=== PATIENT | male | born 1940 | race Caucasian/White ===

== ENCOUNTER 2017-11-28 16:55 | Emergency (ER) | payer OTHER ==
[~2017-11-28] VITALS: Ht 162.6 cm; Wt 75.7 kg
[2017-11-28 17:40] VITALS: Ht 162.6 cm; Wt 75.7 kg
[2017-11-28 20:22] LABS: BASOPHIL % 0.6 % (0-2); PLATELET COUNT 173 x10^3mcL (130-400); RED CELL DISTRIBUTION WIDTH 13.8 % (11.5-14.5)
[2017-11-28 20:26] LABS: CALCIUM 8.7 mg/dL (8.5-10.1); CARBON DIOXIDE 24.8 mmol/L (21-32); CHLORIDE SERUM 100 mmol/L (98-107); CREATININE SERUM 1.1 mg/dL (0.7-1.3); GLUCOSE SERUM 152 mg/dL (74-106); POTASSIUM SERUM 3.5 mmol/L (3.5-5.1); SODIUM SERUM 136 mmol/L (136-145)
[2017-11-28 20:31] LABS: ALBUMIN 3.9 g/dL (3.4-5.0); ALKALINE PHOSPHATASE 95 U/L (46-116); ALT/SGPT 49 U/L (16-63); AST/SGOT 21 U/L (15-37); BILIRUBIN TOTAL 0.3 mg/dL (0.20-1.00); TOTAL PROTEIN, SERUM 7.9 g/dL (6.4-8.2)
[2017-11-28 22:06] VITALS: BP 137/83
== END 2017-11-28 22:06 | disposition home or self-care (01) ==
LOC: ED 16:55
PROVIDERS: Emergency Medicine
DX: J11.1 Influenza due to unidentified influenza virus with other respiratory manifestations (principal); Z88.0 Allergy status to penicillin
CPT/HCPCS: 87804; J0780; J1200; J1885; J7030; Q0092

== ENCOUNTER 2018-05-10 20:06 | Emergency (ER) | payer OTHER ==
[~2018-05-10] VITALS: Ht 160 cm; Wt 75.7 kg
[2018-05-10 20:19] VITALS: Ht 160 cm; Wt 75.7 kg
[2018-05-10 21:08] LABS: BASOPHIL % 1.1 % (0-2); PLATELET COUNT 193 x10^3mcL (130-400)
[2018-05-10 21:11] LABS: RED CELL DISTRIBUTION WIDTH 14.8 % (11.5-14.5)
[2018-05-10 21:25] LABS: CARBON DIOXIDE 29.6 mmol/L (21-32); CHLORIDE SERUM 100 mmol/L (98-107); GLUCOSE SERUM 102 mg/dL (74-106); POTASSIUM SERUM 3.3 mmol/L (3.5-5.1); SODIUM SERUM 140 mmol/L (136-145)
[2018-05-10 21:39] LABS: ALBUMIN 4.1 g/dL (3.4-5.0); ALKALINE PHOSPHATASE 97 U/L (46-116); ALT/SGPT 44 U/L (16-63); AST/SGOT 21 U/L (15-37); BILIRUBIN TOTAL 0.3 mg/dL (0.20-1.00); TOTAL PROTEIN, SERUM 8.2 g/dL (6.4-8.2)
[2018-05-11 00:10] VITALS: BP 147/80
== END 2018-05-11 00:10 | disposition home or self-care (01) ==
LOC: ED 20:06
PROVIDERS: Emergency Medicine
DX: I10 Essential (primary) hypertension (principal); G89.29 Other chronic pain; M54.9 Dorsalgia, unspecified; Z88.0 Allergy status to penicillin
CPT/HCPCS: J3490; Q0092

== ENCOUNTER 2018-08-30 16:50 | Inpatient (IN) | payer OTHER ==
[~2018-08-30] VITALS: Ht 162.6 cm; Wt 76.2 kg
[2018-08-30 17:04] VITALS: Ht 162.6 cm; Wt 76.2 kg
[2018-08-30 17:19] LABS: BASOPHIL % 0.3 % (0-2); PLATELET COUNT 209 x10^3mcL (130-400); RED CELL DISTRIBUTION WIDTH 15.6 % (11.5-14.5)
[2018-08-30 17:23] LABS: CARBON DIOXIDE 27.5 mmol/L (21-32); CHLORIDE SERUM 102 mmol/L (98-107); CREATININE SERUM 1.3 mg/dL (0.7-1.3); GLUCOSE SERUM 99 mg/dL (74-106); POTASSIUM SERUM 3.7 mmol/L (3.5-5.1); SODIUM SERUM 139 mmol/L (136-145)
[2018-08-30 17:27] LABS: ALBUMIN 4.1 g/dL (3.4-5.0); ALKALINE PHOSPHATASE 107 U/L (46-116); ALT/SGPT 57 U/L (16-63); AST/SGOT 22 U/L (15-37); BILIRUBIN TOTAL 0.2 mg/dL (0.20-1.00)
[2018-08-30 17:28] LABS: TOTAL PROTEIN, SERUM 8.3 g/dL (6.4-8.2)
[2018-08-30] MEDS ORDERED: HYDROCHLOROTH12.5 M3 PO (18:29)
[2018-08-30 21:08] LABS: CHOLESTEROL/HDL RATIO 5.4; MAGNESIUM 2.3 mg/dL (1.8-2.4)
[2018-08-30 21:11] VITALS: BP 162/75
[2018-08-30 21:22] VITALS: BP 162/75
[2018-08-31 05:33] VITALS: BP 121/79
[2018-08-31 07:06] LABS: CALCIUM 8.5 mg/dL (8.5-10.1); CARBON DIOXIDE 28.6 mmol/L (21-32); CHLORIDE SERUM 103 mmol/L (98-107); CREATININE SERUM 1.3 mg/dL (0.7-1.3); GLUCOSE SERUM 96 mg/dL (74-106); SODIUM SERUM 140 mmol/L (136-145)
[2018-08-31 07:17] LABS: BASOPHIL % 0.4 % (0-2); PLATELET COUNT 166 x10^3mcL (130-400); RED CELL DISTRIBUTION WIDTH 14.3 % (11.5-14.5)
[2018-08-31 08:17] VITALS: BP 125/74
[2018-08-31 10:42] LABS: microscopic required? NO
[2018-08-31 10:56] LABS: urine erythrocyte NEGATIVE (NEGATIVE)
[2018-08-31 11:35] LABS: AMPHETAMINE QUAL UR NONE DETECTED (See below)
[2018-08-31 12:32] VITALS: BP 110/65
[2018-08-31 15:47] VITALS: BP 107/70
[2018-09-01 05:42] VITALS: BP 96/57
[2018-09-01 08:38] VITALS: BP 116/74
[2018-09-01 11:45] VITALS: BP 114/76
[2018-09-01 12:55] VITALS: BP 116/74
== END 2018-09-01 13:40 | disposition home or self-care (01) | DRG 311 ==
LOC: ED 16:50 → DU 18:02
PROVIDERS: Emergency Medicine; Internal Medicine
DX: I24.9 Acute ischemic heart disease, unspecified (principal); N17.9 Acute kidney failure, unspecified; I11.9 Hypertensive heart disease without heart failure; I25.10 Atherosclerotic heart disease of native coronary artery without angina pectoris; E78.5 Hyperlipidemia, unspecified; J45.909 Unspecified asthma, uncomplicated; G89.29 Other chronic pain; Z68.28 Body mass index [BMI] 28.0-28.9, adult; Z88.0 Allergy status to penicillin; Z79.82 Long term (current) use of aspirin
CPT/HCPCS: 90658; A9500; G0378; J2785; Q0092

== ENCOUNTER 2018-09-28 21:00 | Emergency (ER) | payer OTHER ==
[~2018-09-28] VITALS: Ht 162.6 cm; Wt 75.7 kg
[~2018-09-28 21:00] MED LIST: HYDROCHLOROTH12.5 M3 PO
[2018-09-28 21:23] VITALS: Ht 162.6 cm; Wt 75.7 kg
[2018-09-28 23:40] LABS: CALCIUM 8.8 mg/dL (8.5-10.1); CHLORIDE SERUM 101 mmol/L (98-107); CREATININE SERUM 1.3 mg/dL (0.7-1.3); GLUCOSE SERUM 131 mg/dL (74-106); PLATELET COUNT 174 x10^3mcL (130-400); POTASSIUM SERUM 3.4 mmol/L (3.5-5.1); SODIUM SERUM 139 mmol/L (136-145)
[2018-09-28 23:45] LABS: ALBUMIN 3.7 g/dL (3.4-5.0); ALKALINE PHOSPHATASE 129 U/L (46-116); ALT/SGPT 39 U/L (16-63); AST/SGOT 15 U/L (15-37); BILIRUBIN TOTAL 0.1 mg/dL (0.20-1.00); TOTAL PROTEIN, SERUM 7.6 g/dL (6.4-8.2)
[2018-09-28 23:47] LABS: RED CELL DISTRIBUTION WIDTH 15.4 % (11.5-14.5)
[2018-09-29 00:09] LABS: MONOCYTE 22 % (0-7); SEGMENTED NEUTROPHILS 54 % (37-75)
[2018-09-29 00:11] LABS: rbc morphology (normal/abnorm) NORMAL (NORMAL)
[2018-09-29 03:37] VITALS: BP 103/74
== END 2018-09-29 03:37 | disposition home or self-care (01) ==
LOC: ED 21:00
PROVIDERS: Emergency Medicine
DX: R10.13 Epigastric pain (principal); I10 Essential (primary) hypertension; G89.29 Other chronic pain; Z88.0 Allergy status to penicillin
CPT/HCPCS: J2405; J3010; Q0092

== ENCOUNTER 2018-12-06 14:00 | Inpatient (IN) | payer OTHER ==
[~2018-12-06] VITALS: Ht 162.6 cm; Wt 72.1 kg
[2018-12-06 14:35] VITALS: Ht 162.6 cm; Wt 72.1 kg
[2018-12-06 17:17] LABS: CALCIUM 8.8 mg/dL (8.5-10.1); CARBON DIOXIDE 29.5 mmol/L (21-32); CHLORIDE SERUM 101 mmol/L (98-107); CREATININE SERUM 1.1 mg/dL (0.7-1.3); GLUCOSE SERUM 109 mg/dL (74-106); POTASSIUM SERUM 4.1 mmol/L (3.5-5.1); SODIUM SERUM 138 mmol/L (136-145)
[2018-12-06 17:18] LABS: BASOPHIL % 0.2 % (0-2); PLATELET COUNT 263 x10^3mcL (130-400); RED CELL DISTRIBUTION WIDTH 14.3 % (11.5-14.5)
[2018-12-06 17:23] LABS: ALBUMIN 3.8 g/dL (3.4-5.0); ALKALINE PHOSPHATASE 98 U/L (46-116); ALT/SGPT 24 U/L (16-63); AST/SGOT 17 U/L (15-37); BILIRUBIN TOTAL 0.21 mg/dL (0.20-1.00); CHOLESTEROL 161 mg/dL (<200); LIPASE 115 IU/L (73-393); TRIGLYCERIDES 116 mg/dL (<150)
[2018-12-06 17:24] LABS: CHOLESTEROL/HDL RATIO 4.7; HDL CHOLESTEROL 34 mg/dL (40-60)
[2018-12-06 17:39] LABS: T3 TOTAL 1.19 ng/mL
[2018-12-06 17:44] LABS: FREE T4 1.05 ng/dL (0.76-1.46); FREE THYROXINE INDEX 3.2 ug/dL (1.4-4.5); T4(THYROXINE) 8.8 ug/dL (4.7-13.3)
[2018-12-06] MEDS ORDERED: DIOVAN HCT1 TA1 PO (18:05)
[2018-12-06] MEDS ORDERED: VITAMIN-D1000 IU PO (18:08)
[2018-12-06 18:47] LABS: microscopic required? NO
[2018-12-06 18:58] LABS: UA SPECIFIC GRAVITY 1.015 (1.005-1.035); urine erythrocyte NEGATIVE (NEGATIVE)
[2018-12-06 19:12] LABS: AMPHETAMINE QUAL UR NONE DETECTED (See below)
[2018-12-06 19:13] LABS: MAGNESIUM 2.5 mg/dL (1.8-2.4); PHOSPHOROUS 3.1 mg/dL (2.5-4.9)
[2018-12-06 20:34] VITALS: BP 162/77
[2018-12-06 22:09] VITALS: BP 162/77
[2018-12-07 05:28] VITALS: BP 133/73
[2018-12-07 09:50] VITALS: BP 130/74
[2018-12-07 12:00] VITALS: BP 144/71
[2018-12-07 16:45] VITALS: BP 140/64
[2018-12-07 20:52] VITALS: BP 150/79
[2018-12-08] VITALS (7 sets, daily range): BP systolic 118–175; BP diastolic 58–83
[2018-12-08 06:28] LABS: CALCIUM 8.7 mg/dL (8.5-10.1); CARBON DIOXIDE 28.9 mmol/L (21-32); CHLORIDE SERUM 107 mmol/L (98-107); CREATININE SERUM 0.9 mg/dL (0.7-1.3); GLUCOSE SERUM 102 mg/dL (74-106); MAGNESIUM 2.2 mg/dL (1.8-2.4); PHOSPHOROUS 3.3 mg/dL (2.5-4.9); SODIUM SERUM 143 mmol/L (136-145)
[2018-12-08 06:30] LABS: BASOPHIL % 0.4 % (0-2); PLATELET COUNT 201 x10^3mcL (130-400); RED CELL DISTRIBUTION WIDTH 14.3 % (11.5-14.5)
[2018-12-08] MEDS ORDERED: XARELTO15 M1 PO (10:42)
[2018-12-08] MEDS ORDERED: ZIT250 PO (10:42)
[2018-12-09 05:32] VITALS: BP 140/77
[2018-12-09 06:12] LABS: BASOPHIL % 0.2 % (0-2); PLATELET COUNT 209 x10^3mcL (130-400); RED CELL DISTRIBUTION WIDTH 14.2 % (11.5-14.5)
[2018-12-09 06:31] LABS: CALCIUM 8.6 mg/dL (8.5-10.1); CARBON DIOXIDE 29.4 mmol/L (21-32); CHLORIDE SERUM 103 mmol/L (98-107); CREATININE SERUM 0.9 mg/dL (0.7-1.3); GLUCOSE SERUM 95 mg/dL (74-106); MAGNESIUM 2.1 mg/dL (1.8-2.4); PHOSPHOROUS 3.1 mg/dL (2.5-4.9); POTASSIUM SERUM 3.8 mmol/L (3.5-5.1); SODIUM SERUM 141 mmol/L (136-145)
[2018-12-09 09:00] VITALS: BP 145/77
[2018-12-09 12:15] VITALS: BP 141/75
[2018-12-09 18:00] VITALS: BP 166/83
[2018-12-09 19:18] VITALS: BP 151/76
[2018-12-09 20:24] VITALS: BP 130/62
[2018-12-10 05:25] VITALS: BP 145/94
[2018-12-10 06:10] LABS: BASOPHIL % 0.4 % (0-2); PLATELET COUNT 209 x10^3mcL (130-400); RED CELL DISTRIBUTION WIDTH 14.5 % (11.5-14.5)
[2018-12-10 08:15] LABS: CALCIUM 9.3 mg/dL (8.5-10.1); CARBON DIOXIDE 25.6 mmol/L (21-32); CHLORIDE SERUM 104 mmol/L (98-107); GLUCOSE SERUM 91 mg/dL (74-106); MAGNESIUM 2.3 mg/dL (1.8-2.4); PHOSPHOROUS 3.3 mg/dL (2.5-4.9); POTASSIUM SERUM 4.1 mmol/L (3.5-5.1); SODIUM SERUM 138 mmol/L (136-145)
[2018-12-10 08:40] VITALS: BP 154/88
[2018-12-10 13:30] VITALS: BP 144/84
[2018-12-10 18:00] VITALS: BP 135/88
[2018-12-10 20:59] VITALS: BP 152/77
[2018-12-11 05:02] VITALS: BP 109/76
[2018-12-11 07:59] LABS: BASOPHIL % 0.4 % (0-2); PLATELET COUNT 200 x10^3mcL (130-400); RED CELL DISTRIBUTION WIDTH 13.6 % (11.5-14.5)
[2018-12-11 09:18] VITALS: BP 144/92
[2018-12-11 09:59] LABS: CALCIUM 8.6 mg/dL (8.5-10.1); CARBON DIOXIDE 28.8 mmol/L (21-32); CHLORIDE SERUM 107 mmol/L (98-107); CREATININE SERUM 0.7 mg/dL (0.7-1.3); GLUCOSE SERUM 92 mg/dL (74-106); POTASSIUM SERUM 4.2 mmol/L (3.5-5.1); SODIUM SERUM 141 mmol/L (136-145)
[2018-12-11 12:53] VITALS: BP 143/82
[2018-12-11 17:22] VITALS: BP 168/86
[2018-12-11 20:30] VITALS: BP 143/70
[2018-12-12 05:37] VITALS: BP 148/79
[2018-12-12 06:29] LABS: CALCIUM 8.3 mg/dL (8.5-10.1); CARBON DIOXIDE 29.7 mmol/L (21-32); CHLORIDE SERUM 106 mmol/L (98-107); GLUCOSE SERUM 89 mg/dL (74-106); POTASSIUM SERUM 3.9 mmol/L (3.5-5.1); SODIUM SERUM 139 mmol/L (136-145)
[2018-12-12 08:43] VITALS: BP 143/81
[2018-12-12 09:15] LABS: BASOPHIL % 0.3 % (0-2); PLATELET COUNT 182 x10^3mcL (130-400); RED CELL DISTRIBUTION WIDTH 13.5 % (11.5-14.5)
[2018-12-12 16:09] VITALS: BP 163/82
[2018-12-12 20:51] VITALS: BP 151/79
[2018-12-13 04:23] VITALS: BP 143/76
[2018-12-13 06:13] LABS: BASOPHIL % 0.4 % (0-2); PLATELET COUNT 185 x10^3mcL (130-400); RED CELL DISTRIBUTION WIDTH 14.4 % (11.5-14.5)
[2018-12-13 06:17] LABS: CALCIUM 8.7 mg/dL (8.5-10.1); CARBON DIOXIDE 29.5 mmol/L (21-32); CHLORIDE SERUM 105 mmol/L (98-107); CREATININE SERUM 0.9 mg/dL (0.7-1.3); GLUCOSE SERUM 96 mg/dL (74-106); SODIUM SERUM 141 mmol/L (136-145)
[2018-12-13 09:02] VITALS: BP 151/85
[2018-12-13 10:16] VITALS: BP 151/85
[2018-12-13] MEDS ORDERED: COUMADIN5 MG PO (10:46)
[2018-12-13 11:29] VITALS: BP 146/77
== END 2018-12-13 16:36 | disposition home or self-care (01) | DRG 175 ==
LOC: ED 14:00 → DU 19:26 → MU 19:26 → DU 20:08 → MU 12-11 16:54
PROVIDERS: Specialist; ADMIT General Practice
DX: I26.99 Other pulmonary embolism without acute cor pulmonale (principal); N17.0 Acute kidney failure with tubular necrosis; J44.1 Chronic obstructive pulmonary disease with (acute) exacerbation; J20.9 Acute bronchitis, unspecified; E11.65 Type 2 diabetes mellitus with hyperglycemia; I10 Essential (primary) hypertension; E78.5 Hyperlipidemia, unspecified; E83.41 Hypermagnesemia; F17.210 Nicotine dependence, cigarettes, uncomplicated; Z68.28 Body mass index [BMI] 28.0-28.9, adult
CPT/HCPCS: 82962; 83880; 84439; J1650; J7030; J7620; Q9967

== ENCOUNTER 2019-01-19 20:26 | Inpatient (IN) | payer OTHER ==
[~2019-01-19] VITALS: Ht 162.6 cm; Wt 70.4 kg
[~2019-01-19 20:26] MED LIST changes: +COUMADIN5 MG PO; +DIOVAN HCT1 TA1 PO; +VITAMIN-D1000 IU PO; +XARELTO15 M1 PO; +ZIT250 PO
--- NOTE | 2019-01-19 20:35 | NUR ---
EMT AT BEDSIDE FOR EKG
--- NOTE | 2019-01-19 20:41 | NUR ---
PT PRESENTED TO THE ED WITH C/O PRESSURE-LIKE CHEST PAIN RATED 10/10 THAT BEGAN 2 HRS AGO. STS HIS BUE GET NUMB/TINGLING. ALSO C/O PRESSURE-LIKE ORTIZ RATED 10/10. DENIES TAKING ANY PAIN MEDS AT HOME. STS THIS HAS HAPPENED BEFORE. DENIES ANY N/V/D. STS HE WAS AT THIS HOSPITAL "NOT TOO LONG AGO", AND WAS TOLD THAT HE HAD BLOOD CLOTS IN HIS LOWER EXTREMITIES, PT IS CURRETLY TAKING WARFARIN. PT DENIES ANY SOB. PT CONNECTED TO FULL DIRECTOR OF SUSTAINABILITY.
[2019-01-19 21:05] LABS: BASOPHIL % 0.4 % (0-2); PLATELET COUNT 168 x10^3mcL (130-400)
[2019-01-19 21:11] LABS: RED CELL DISTRIBUTION WIDTH 14.7 % (11.5-14.5)
[2019-01-19 21:14] LABS: CALCIUM 8.4 mg/dL (8.5-10.1); CARBON DIOXIDE 25.2 mmol/L (21-32); CHLORIDE SERUM 103 mmol/L (98-107); CREATININE SERUM 1.1 mg/dL (0.7-1.3); GLUCOSE SERUM 99 mg/dL (74-106); POTASSIUM SERUM 3.6 mmol/L (3.5-5.1); SODIUM SERUM 137 mmol/L (136-145)
[2019-01-19 21:19] LABS: ALBUMIN 3.7 g/dL (3.4-5.0); ALKALINE PHOSPHATASE 83 U/L (46-116); ALT/SGPT 41 U/L (16-63); AST/SGOT 29 U/L (15-37); BILIRUBIN TOTAL 0.32 mg/dL (0.20-1.00); TOTAL PROTEIN, SERUM 7.2 g/dL (6.4-8.2)
--- NOTE | 2019-01-19 21:54 | NUR ---
PT IS SITTING UP IN THE GURNEY. NO S/S OF ACUTE DISTRESS NOTED. PT'S BREATHING IS E/U ON RA, PT SATURATING 97%. PT CONNECTED TO FULL MOTHER REPAIRER. WILL CONT TO MONITOR
[2019-01-19] MEDS ORDERED: COUMADIN2 MG PO (23:28)
[2019-01-19] MEDS ORDERED: METFORMIN HYDR500 M1 PO (23:28)
--- NOTE | 2019-01-19 23:45 | NUR ---
REPORT GIVEN TO AKASH FOR CONTINUITY OF CARE
[2019-01-20 00:11] LABS: CHOLESTEROL/HDL RATIO 4.1; MAGNESIUM 2.2 mg/dL (1.8-2.4)
--- NOTE | 2019-01-20 00:12 | NUR ---
RECEIVED PT FROM ED [facility]IA [facility], CAME IN DUE TO CHEST PAIN W/ SOB AND COUGH. AAOX4. DENIES HEADACHE/DIZZINESS. ABLE TO FOLLOW COMMANDS. NO SOB NOTED, LUNG SOUNDS CTA. DENIES CHEST PAIN/PRESSURE,SINUS BRADYCARDIA ON THE MONITOR. DENIES ABDOMINAL DISCOMFORT. ABDOMEN IS SOFT AND ROUND. VOIDS FREELY. SKIN IS INTACT. IV SITE ON THE RAC IS PATENT AND INTACT. SIDE RAILS UPX2. CALL LIGHT ON REACH. ENDORSED TO PRIMARY NURSE JUAN FOR CONTINUITY OF CARE
[2019-01-20 00:20] VITALS: BP 161/73
[2019-01-20 00:41] VITALS: Ht 162.6 cm; Wt 70.4 kg
--- NOTE | 2019-01-20 01:00 | NUR ---
PATIENT SLEEPING QUIETLY AND COMFORTABLY THIS TIME, SB-SR ON THE MONITOR.SAFETY PRECAUTIONS MAINTAINED. WILL CONTINUE TO MONITOR.
--- NOTE | 2019-01-20 03:30 | NUR ---
REMAINED ASLEEP NO DISTRESS, WILL CONTINUE TO MONITOR.
[2019-01-20 06:23] LABS: CALCIUM 8.7 mg/dL (8.5-10.1); CARBON DIOXIDE 26.4 mmol/L (21-32); CHLORIDE SERUM 104 mmol/L (98-107); GLUCOSE SERUM 87 mg/dL (74-106); POTASSIUM SERUM 3.9 mmol/L (3.5-5.1); SODIUM SERUM 141 mmol/L (136-145)
[2019-01-20 06:27] LABS: BASOPHIL % 0.6 % (0-2); PLATELET COUNT 158 x10^3mcL (130-400)
[2019-01-20 06:34] VITALS: BP 131/82
--- NOTE | 2019-01-20 06:34 | NUR ---
PATIENT WITH HX; DM, RANDOM ACUCHECK DONE THIS AM WAS 81, GAVE 1 GLASS OF ORANGE JUICE.PATIENT INFORMED ABOUT LEXISCAN TODAY AT 1330 TO CHECK HIS HEART AND THAT NO FODD NOR DRINK AFTER BREAKFAST VERBALIZED UNDERSTANDING. HEPLOCK INTACT. PATIENT HAD DENIED CHEST PAINS DURING THE SHIFT, TELE#22,SB, HR=57BPM, RHYTHM REGULAR. SAFEY MAINTAINED. WILL ENDORSE CONTINUITY OF CARE TO INCOMING NURSE.
[2019-01-20 07:01] LABS: RED CELL DISTRIBUTION WIDTH 14.8 % (11.5-14.5)
--- NOTE | 2019-01-20 07:21 | NUR ---
bedside handsoff and introduction performed with incoming nurse osito-jeanette.
--- NOTE | 2019-01-20 08:00 | NUR ---
RECEIVED PATIENT ALERT AND ORIENTED AND IS FOR STRESS TEST TODAY. IV INTACT AND HELD THE BP MEDICATION AND FOR TESTING TODAY AT 1130. SPOKE WITH THE STAFF IN NUCLEAR MED AND THEY WILL RETREAVE HIM AT 1130 AND THE TEST AT 1300. GRANTABILIO TAHS NO COMPLAINTS OF PAIN OR ANY ISSUES WITH SOB AT THIS TIME. LUNGS ARE CLEAR AND BOWEL SOUNDS ACTIVE AND SLIGHT TRACE EDEMA NOTED TO THE LOWER EXTREMITES. PATIENT HAS BEEN AMBULATORY AND WITH LAST TROPONINE AT 0.02. PATIENT HAS BEEN ON COUMADIN AT HOME AND WILL CONTINUE HERE. RECEIVED LOVENOX IN THE ER ON ADMISSION. PATIENT HAS NOTED LABS OF BRYAN BUN AT 20.0, WBC AT 5.7, ORTIZ DH DOF 11.6/35, AN DTHE PT AT 11.4. PATIENTS VITALS AT THIS TIME AT 97.3, 58, 20, 131/82, 97% ON ROOM AIR. PATIENT HAS BEEN SINUS DARY ON THE MONITOR.
[2019-01-20 09:24] VITALS: BP 129/67
--- NOTE | 2019-01-20 11:17 | NUR ---
RECEIVED CALL FROM NM AND THE TEST WAS CANCELED PER THE TECH PER DR ROBLES. WILL ADVISE THE PATIENT INDICATED. WILL GIVE BRYAN BP MEDICATION NOW INDICATED WELL. NOT DISTRESS AT THIS TIME.
[2019-01-20 12:44] VITALS: BP 125/77
[2019-01-20 13:38] VITALS: BP 125/77
--- NOTE | 2019-01-20 13:57 | NUR ---
DIET TOLERATE AND PATIENT HAS NO COMPLAINTS OF PAIN AT THIS TIME. AWAITING DR ROBLES FOR ORDER FOR DISCHARGE IF APPROPRIATE.
--- NOTE | 2019-01-20 14:37 | NUR ---
GAVE DISCHARGE PAPERWORK TO THE PATIENT ALONG WITH PRESCRIPTION. PATIENT IV AND TELE REMOVED. AWAITING FINISHING TUNNEL OPERATOR AT THIS TIME. A PACKET OF EDUCATIONAL MATERIALS GIVEN TO THE PATIENT.
== END 2019-01-20 15:25 | disposition home or self-care (01) | DRG 302 ==
LOC: ED 20:26 → DU 21:02
PROVIDERS: Emergency Medicine; ADMIT Internal Medicine
DX: I25.119 Atherosclerotic heart disease of native coronary artery with unspecified angina pectoris (principal); I26.99 Other pulmonary embolism without acute cor pulmonale; I24.9 Acute ischemic heart disease, unspecified; I11.9 Hypertensive heart disease without heart failure; R09.1 Pleurisy; E11.9 Type 2 diabetes mellitus without complications; E78.5 Hyperlipidemia, unspecified; Z68.26 Body mass index [BMI] 26.0-26.9, adult; Z79.01 Long term (current) use of anticoagulants; Z79.82 Long term (current) use of aspirin
CPT/HCPCS: 82962; J1650; Q0092

== ENCOUNTER 2019-02-19 17:02 | Emergency (ER) | payer OTHER ==
[~2019-02-19] VITALS: Ht 162.6 cm; Wt 69.4 kg
[~2019-02-19 17:02] MED LIST changes: +COUMADIN2 MG PO; +METFORMIN HYDR500 M1 PO
[2019-02-19 17:07] VITALS: Ht 162.6 cm; Wt 69.4 kg
[2019-02-19 18:46] LABS: BASOPHIL % 1.6 % (0-2); PLATELET COUNT 209 x10^3mcL (130-400); RED CELL DISTRIBUTION WIDTH 15.2 % (11.5-14.5)
[2019-02-19 18:53] LABS: CALCIUM 8.9 mg/dL (8.5-10.1); CARBON DIOXIDE 26.5 mmol/L (21-32); CHLORIDE SERUM 103 mmol/L (98-107); CREATININE SERUM 1.1 mg/dL (0.7-1.3); GLUCOSE SERUM 127 mg/dL (74-106); POTASSIUM SERUM 3.8 mmol/L (3.5-5.1); SODIUM SERUM 137 mmol/L (136-145)
[2019-02-19 18:58] LABS: ALBUMIN 3.8 g/dL (3.4-5.0); ALKALINE PHOSPHATASE 96 U/L (46-116); ALT/SGPT 37 U/L (16-63); AST/SGOT 14 U/L (15-37); BILIRUBIN TOTAL 0.3 mg/dL (0.20-1.00); LIPASE 109 IU/L (73-393); TOTAL PROTEIN, SERUM 7.6 g/dL (6.4-8.2)
[2019-02-19 21:41] VITALS: BP 156/80
== END 2019-02-19 21:41 | disposition home or self-care (01) ==
LOC: ED 17:02
PROVIDERS: Emergency Medicine
DX: R10.9 Unspecified abdominal pain (principal); R07.89 Other chest pain; R06.02 Shortness of breath; I10 Essential (primary) hypertension; G89.29 Other chronic pain; M54.9 Dorsalgia, unspecified; E11.9 Type 2 diabetes mellitus without complications; Z90.89 Acquired absence of other organs; Z88.0 Allergy status to penicillin
CPT/HCPCS: 85378; J7030; Q9967

== ENCOUNTER 2019-04-07 15:15 | Emergency (ER) | payer OTHER ==
[~2019-04-07] VITALS: Ht 162.6 cm; Wt 68.0 kg
[2019-04-07 15:16] VITALS: Ht 162.6 cm; Wt 68.0 kg
[2019-04-07 17:36] LABS: BASOPHIL % 0.8 % (0-2); PLATELET COUNT 192 x10^3mcL (130-400)
[2019-04-07 17:38] LABS: RED CELL DISTRIBUTION WIDTH 14.9 % (11.5-14.5)
[2019-04-07 17:47] LABS: CALCIUM 8.8 mg/dL (8.5-10.1); CARBON DIOXIDE 25.7 mmol/L (21-32); CHLORIDE SERUM 106 mmol/L (98-107); CREATININE SERUM 1.2 mg/dL (0.7-1.3); GLUCOSE SERUM 116 mg/dL (74-106); POTASSIUM SERUM 3.7 mmol/L (3.5-5.1); SODIUM SERUM 141 mmol/L (136-145)
[2019-04-07 17:59] LABS: ALBUMIN 3.5 g/dL (3.4-5.0); ALKALINE PHOSPHATASE 99 U/L (46-116); ALT/SGPT 26 U/L (16-63); AST/SGOT 17 U/L (15-37); BILIRUBIN TOTAL 0.2 mg/dL (0.20-1.00); CHOLESTEROL 156 mg/dL (<200); LIPASE 110 IU/L (73-393); T4(THYROXINE) 6.1 ug/dL (4.7-13.3); TOTAL PROTEIN, SERUM 7.1 g/dL (6.4-8.2)
[2019-04-07 18:00] LABS: HDL CHOLESTEROL 33 mg/dL (40-60)
[2019-04-07 19:53] LABS: microscopic required? NO
[2019-04-07 20:16] LABS: UA SPECIFIC GRAVITY 1.015 (1.005-1.035); urine erythrocyte NEGATIVE (NEGATIVE)
[2019-04-07 21:20] VITALS: BP 137/79
== END 2019-04-07 21:20 | disposition home or self-care (01) ==
LOC: ED 15:15
PROVIDERS: Emergency Medicine
DX: K59.00 Constipation, unspecified (principal); I10 Essential (primary) hypertension; E11.9 Type 2 diabetes mellitus without complications; G89.29 Other chronic pain; M54.9 Dorsalgia, unspecified; Z88.0 Allergy status to penicillin; Z90.89 Acquired absence of other organs
CPT/HCPCS: J2405; J3010; J7030; Q0092; Q9967

== ENCOUNTER 2019-06-12 16:52 | Emergency (ER) | payer OTHER ==
[~2019-06-12] VITALS: Ht 162.6 cm; Wt 67.6 kg
[2019-06-12 17:03] VITALS: Ht 162.6 cm; Wt 67.6 kg
[2019-06-12 17:38] LABS: BASOPHIL % 0.2 % (0-2); PLATELET COUNT 179 x10^3mcL (130-400)
[2019-06-12 17:46] LABS: CALCIUM 8.8 mg/dL (8.5-10.1); CARBON DIOXIDE 28.1 mmol/L (21-32); CHLORIDE SERUM 107 mmol/L (98-107); GLUCOSE SERUM 146 mg/dL (74-106); POTASSIUM SERUM 3.4 mmol/L (3.5-5.1); SODIUM SERUM 143 mmol/L (136-145)
[2019-06-12 17:50] LABS: ALBUMIN 3.7 g/dL (3.4-5.0); ALKALINE PHOSPHATASE 99 U/L (46-116); ALT/SGPT 19 U/L (16-63); AST/SGOT 16 U/L (15-37); BILIRUBIN TOTAL 0.4 mg/dL (0.20-1.00); TOTAL PROTEIN, SERUM 7.4 g/dL (6.4-8.2)
[2019-06-12 17:53] LABS: AMPHETAMINE QUAL UR NONE DETECTED (See below)
[2019-06-12 21:39] LABS: CALCIUM 8.3 mg/dL (8.5-10.1); CHLORIDE SERUM 108 mmol/L (98-107); CREATININE SERUM 0.9 mg/dL (0.7-1.3); GLUCOSE SERUM 117 mg/dL (74-106); POTASSIUM SERUM 3.6 mmol/L (3.5-5.1); SODIUM SERUM 143 mmol/L (136-145)
[2019-06-12 21:45] LABS: ALKALINE PHOSPHATASE 96 U/L (46-116); ALT/SGPT 17 U/L (16-63); AST/SGOT 14 U/L (15-37); BILIRUBIN TOTAL 0.2 mg/dL (0.20-1.00); TOTAL PROTEIN, SERUM 6.9 g/dL (6.4-8.2)
[2019-06-12 21:46] LABS: ALBUMIN 3.3 g/dL (3.4-5.0)
[2019-06-13 02:20] VITALS: BP 134/82
== END 2019-06-13 02:20 | disposition short-term general hospital (02) ==
LOC: ED 16:52
PROVIDERS: Emergency Medicine
DX: T38.3X2A Poisoning by insulin and oral hypoglycemic [antidiabetic] drugs, intentional self-harm, initial encounter (principal); Z88.0 Allergy status to penicillin; Y92.89 Other specified places as the place of occurrence of the external cause
CPT/HCPCS: 36415; 82962; G0480

== ENCOUNTER 2019-06-25 12:26 | Inpatient (IN) | payer OTHER ==
[~2019-06-25] VITALS: Ht 162.6 cm; Wt 72.1 kg
[2019-06-25 12:42] VITALS: Ht 162.6 cm; Wt 72.1 kg
[2019-06-25 13:22] LABS: BASOPHIL % 0.3 % (0-2); PLATELET COUNT 212 x10^3mcL (130-400)
[2019-06-25 13:29] LABS: CALCIUM 8.2 mg/dL (8.5-10.1); CARBON DIOXIDE 24.6 mmol/L (21-32); CHLORIDE SERUM 106 mmol/L (98-107); CREATININE SERUM 1.3 mg/dL (0.7-1.3); GLUCOSE SERUM 129 mg/dL (74-106); POTASSIUM SERUM 3.9 mmol/L (3.5-5.1); SODIUM SERUM 141 mmol/L (136-145)
[2019-06-25 13:36] LABS: ALBUMIN 3.8 g/dL (3.4-5.0); ALKALINE PHOSPHATASE 114 U/L (46-116); ALT/SGPT 22 U/L (16-63); AST/SGOT 13 U/L (15-37); BILIRUBIN TOTAL 0.33 mg/dL (0.20-1.00); TOTAL PROTEIN, SERUM 7.8 g/dL (6.4-8.2)
[2019-06-25 13:41] LABS: RED CELL DISTRIBUTION WIDTH 15.4 % (11.5-14.5)
[2019-06-25 15:58] VITALS: BP 139/76
[2019-06-25 16:00] VITALS: BP 116/61
[2019-06-25] MEDS ORDERED: DIOVAN160 MG PO (16:42)
[2019-06-25] MEDS ORDERED: DIOHCT PO (16:45)
[2019-06-25] MEDS ORDERED: XARELTO10 M1 PO (16:46)
[2019-06-25 20:04] VITALS: BP 130/68
[2019-06-26 05:19] VITALS: BP 118/76
[2019-06-26 06:17] LABS: CALCIUM 8.6 mg/dL (8.5-10.1); CARBON DIOXIDE 27.4 mmol/L (21-32); CHLORIDE SERUM 104 mmol/L (98-107); CREATININE SERUM 1.1 mg/dL (0.7-1.3); GLUCOSE SERUM 105 mg/dL (74-106); POTASSIUM SERUM 4.5 mmol/L (3.5-5.1); SODIUM SERUM 139 mmol/L (136-145)
[2019-06-26 06:30] LABS: BASOPHIL % 0.1 % (0-2); PLATELET COUNT 190 x10^3mcL (130-400)
[2019-06-26 06:50] LABS: RED CELL DISTRIBUTION WIDTH 15.5 % (11.5-14.5)
[2019-06-26 07:50] VITALS: BP 117/48
[2019-06-26 11:50] VITALS: BP 125/60
[2019-06-26 16:27] VITALS: BP 129/71
[2019-06-26 20:26] VITALS: BP 103/71
[2019-06-27 05:18] VITALS: BP 132/85
[2019-06-27 08:01] VITALS: BP 115/66
[2019-06-27 11:55] VITALS: BP 104/64
== END 2019-06-27 15:58 | disposition home or self-care (01) | DRG 194 ==
LOC: ED 12:26 → DU 14:58
PROVIDERS: Emergency Medicine; ADMIT Internal Medicine
DX: R09.1 Pleurisy (principal); J44.1 Chronic obstructive pulmonary disease with (acute) exacerbation; J44.0 Chronic obstructive pulmonary disease with (acute) lower respiratory infection; J20.9 Acute bronchitis, unspecified; E11.9 Type 2 diabetes mellitus without complications; I11.9 Hypertensive heart disease without heart failure; I25.10 Atherosclerotic heart disease of native coronary artery without angina pectoris; Z68.25 Body mass index [BMI] 25.0-25.9, adult; Z86.711 Personal history of pulmonary embolism; Z79.84 Long term (current) use of oral hypoglycemic drugs; Z79.01 Long term (current) use of anticoagulants; Z79.82 Long term (current) use of aspirin
CPT/HCPCS: 82962; 83880; 85378; 90658; 90732; A9500; G0378; J2785; J7620; Q0092; Q9967

== ENCOUNTER 2019-09-01 12:02 | Inpatient (IN) | payer OTHER ==
[~2019-09-01] VITALS: Ht 162.6 cm; Wt 71.2 kg
[~2019-09-01 12:02] MED LIST changes: +DIOHCT PO; +DIOVAN160 MG PO; +XARELTO10 M1 PO
[2019-09-01 12:04] VITALS: Ht 162.6 cm; Wt 71.2 kg
--- NOTE | 2019-09-01 12:07 | NUR ---
PT ASSISTED TO ASSIGNED BED VIA WHEELCHAIR. EKG IN PROGRESS AT BEDSIDE.
--- NOTE | 2019-09-01 12:10 | NUR ---
PT BIB SELF FOR C/O CP, DIZZINESS AND SOB UPON EXERTION X2 DAYS. PT REPORTS MIDSTERNAL CP THAT RADIATES TO BILAT UPPER EXTREMITIES. PT REPORTS HAVING A FALL WHILE WALKING TO ORTHODOXY, DENIES HEAD INJURY. 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 BILAT SIDERAILS UP FOR SAFETY, IN POSITIONE OF COMFORT, CALL LIGHT WITHIN EASY REACH. WILL CONTINUE TO MONITOR. SKINS DIAPHORETIC, WARM, AND PINK. PT STS NEAR SYNCOPAL EPISODE. WITH PALPATION PT HAS BILAT UPPER QUADRANT TENDERNESS. NEGATIVE FACIAL DROOP, + EQUAL GENOMICS SCIENTIST, - ARM DRIFT. PT STS THAT HE HAS BEEN HAVING DRY COUGH X 1 WEEK AND IS TAKING "COUGH SYRUP". VSS, RESPS LABORED. WILL CONTINUE TO MONITOR.
[2019-09-01 12:41] LABS: BASOPHIL % 0.5 % (0-2); PLATELET COUNT 211 x10^3mcL (130-400)
[2019-09-01] MEDS ORDERED: CLARAVIS30 MG PO (12:47)
[2019-09-01] MEDS ORDERED: DIOVAN160 MG PO (12:47)
[2019-09-01 12:50] LABS: RED CELL DISTRIBUTION WIDTH 14.8 % (11.5-14.5)
[2019-09-01 13:02] LABS: CALCIUM 8.4 mg/dL (8.5-10.1); CARBON DIOXIDE 27.5 mmol/L (21-32); CHLORIDE SERUM 103 mmol/L (98-107); CREATININE SERUM 1.2 mg/dL (0.7-1.3); GLUCOSE SERUM 152 mg/dL (74-106); POTASSIUM SERUM 3.5 mmol/L (3.5-5.1); SODIUM SERUM 141 mmol/L (136-145)
[2019-09-01 13:13] LABS: ALBUMIN 3.8 g/dL (3.4-5.0); ALKALINE PHOSPHATASE 103 U/L (46-116); ALT/SGPT 21 U/L (16-63); AST/SGOT 16 U/L (15-37); BILIRUBIN TOTAL 0.4 mg/dL (0.20-1.00)
--- NOTE | 2019-09-01 14:36 | NUR ---
PT ADMITTED TO TELE DX C/P PER KIRSTY STORY
--- NOTE | 2019-09-01 15:03 | NUR ---
REPORT GIVEN TO LIZZETH IGNACIO TO ASSUME CARE PT.
[2019-09-01 15:20] VITALS: BP 157/85
--- NOTE | 2019-09-01 15:30 | NUR ---
RECEIVED PT FROM ER, PT ADMIT FOR CHEST PAIN. PT IS A/O X4, VERBAL RESPONSIVE. LUNG SOUND CLEAR BILATERAL, NO COUGH, NO SOB. PT IS ON 2L/MIN O2 VIA NC. PO2 99%, PT IS ON TELE 15, NSR, STILL C/O CHEST PAIN AT MID CHEST 4/10 AND RADIATE TO BACK AND BOTH ARM. BOWEL SOUND PRESENT ALL 4 QUADRANTS, NO DISTENTION, NO TENDER. PEDAL PULSE PRESENT BOTH FEET, NO EDEMA, IV AT LEFT AC, AND RIGHT AC, NO LEAKING, NO INFILTRATION. ALL ADLS ASSIST, ALL NEED MET, CALL LIGHT IN REACH, WILL CONTNUE TO MONITOR.
--- NOTE | 2019-09-01 15:31 | NUR ---
PATIENT IS A&OX4, DENIES CHEST PAIN. LUNG SOUNDS CTA BILATERALLY, DENIES SOB. NORMOACTIVE BSX4. STATES NO ISSUES WITH BM. ON RA. IV SITES ARE CDI. NO PAIN STATED BY PATIENT. SKIN IS INTACT. PATIENT COOPERATES WELL AND FOLLOWS COMMANDS. PATIENT WAS ORIENTED TO THE UNIT WELL. WILL CONTINUE TO MONITOR FOR INCREASING SOB OR CHEST PAIN.
[2019-09-01 15:32] LABS: CHOLESTEROL/HDL RATIO 3.9; MAGNESIUM 2.1 mg/dL (1.8-2.4)
--- NOTE | 2019-09-01 16:05 | NUR ---
CONTACTED BY DR. ROBLSE AND ASKED FOR PATIENT STATUS. MD ORDERED TROPONIN LEVELS TO BE DRAWN 09/01 1800, AND 09/02 0500. ORDERED REPEAT EKG IN AM. ORDERED METOPROLOL 12.5 MG BID. ORDERED LIPID PROFILE PANEL TO BE DRAWN 09/02 0500. ORDERS WERE RESTATED BACK TO , WHICH CONFIRMED. NO FURTHER ORDERS AT THIS TIME.
--- NOTE | 2019-09-01 17:53 | NUR ---
PATIENT IS ALERT & ORIETNED X4. DENIES CHEST PAIN AT THIS TIME. DENIES ANY SOB. REMAINS ON 2L NC 95% O2 SAT. PATIENT IS CURRENTLY RESTING WHILE WATCHING TELEVISION. ALL QUESTIONS AND CONCERNS HAVE BEEN ADDRESSED AT THIS TIME. WILL CONTINUE TO MONITOR PATIENT.
--- NOTE | 2019-09-01 19:37 | NUR ---
RECEIVED AWAKE IN BED, WATCHING TV. SKIN WAMR AND DRY TO TOUCH. ON 02 AT 2L/NC, RESPIRATION EVEN AND UNLABORED. ON TELE#15 WITH SR. NO S/S OF CHEST PAIN/DISCOMFRT. IV SITE AT THE LAC AND RAC INTACT AND PATENT, CLAMPED AT THIS TIME. PLACED CALL LIGHT WITHIN REACH, INSTRUCTED TO CALL FOR ANY ASSISTANCE NEEDED AND VERBALIZED UNDERSTANDING.
[2019-09-01 20:54] VITALS: BP 148/90
--- NOTE | 2019-09-02 00:01 | NUR ---
EYES CLOSED, NO FACIAL GRIAMCING NOTED. RESPIRATION EVEN AND UNLABORED. ON 02 AT 2L/NC , NO SIGNS OF ACUTE DISTRESS.
[2019-09-02 05:26] VITALS: BP 127/65
--- NOTE | 2019-09-02 06:17 | NUR ---
IV SITE AT THE LAC AND RAC INTACT AND PATENT. NO REDNESS NOTED AT THE IV SITE.DENIES ANY CHEST PAIN/DISCOMFORT. ALL NEEDS ATTENDED.
[2019-09-02 06:58] LABS: BASOPHIL % 0.4 % (0-2); PLATELET COUNT 194 x10^3mcL (130-400); RED CELL DISTRIBUTION WIDTH 15.2 % (11.5-14.5)
[2019-09-02 07:17] LABS: CALCIUM 8.9 mg/dL (8.5-10.1); CARBON DIOXIDE 25.9 mmol/L (21-32); CHLORIDE SERUM 105 mmol/L (98-107); GLUCOSE SERUM 96 mg/dL (74-106); POTASSIUM SERUM 4.1 mmol/L (3.5-5.1); SODIUM SERUM 142 mmol/L (136-145)
--- NOTE | 2019-09-02 07:30 | NUR ---
PATIENT IS A&OX4, FOLLOWS COMMANDS AND COOPERATES WELL. TELE #15, NSR. PERIPHERAL PULSES PALPABLE W/ NO SIGNS OF EDEMA. 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 LUNG SOUNDS CTA BILATERALLY. ON 2L NC. DENIES SOB. NORMOACTIVE BSX4. VOIDS WELL. AMBULATORY. SKIN IS INTACT. DENIES ANY CHEST PAIN. IV SITES ARE CDI. VSS. WILL CONTINUE TO MONITOR.
[2019-09-02 08:34] LABS: CHOLESTEROL/HDL RATIO 3.6
[2019-09-02 09:02] VITALS: BP 149/68
[2019-09-02 13:00] VITALS: BP 141/85
--- NOTE | 2019-09-02 14:22 | NUR ---
ECHOCARDIOGRAM COMPLETED.
--- NOTE | 2019-09-02 14:43 | NUR ---
RN TOOK ORTHOSTATIC BP AND HR WITH PATIENT. PATIENT LAY SUPINE FOR 5 MINUTES. BP 128/74 AND HR 83. SITTING FOR 3 MINUTES, BP 135/77 AND HR 80. STANDING FOR 1 MINUTE 135/75 BP AND 71 HR.
[2019-09-02 17:21] VITALS: BP 147/66
--- NOTE | 2019-09-02 17:49 | NUR ---
PATIENT IS A&OX4, FOLLOWS COMMANDS, ON RA. O2 SAT IS 97%. DENIES SOB OR CHJEST PAIN AT THIS TIME. CURRENTLY RESTING WHILE WATCHING TRELEVISION ADN EATING DINNER. ALL QUESTIONS AND CONCERNS HAVE BEEN ADDRSESED AT THIS TIME. WILL CONTINUE TO MONITOR.
--- NOTE | 2019-09-02 19:58 | NUR ---
RECEIVED AWAKE IN BED WATCHING TV. SKIN WARM AND DRY TO TOUCH WITH IV ACCESS TO THE RAC INTAXCT AND PATENT. NO REDNESS NOTED AT THE IV SITE. DNIES ANY CHEST PAIN/DISCOMFORT. PLACED CALL LIGHT WITHIN REACH,INSTRUCTED TO CALL FOR ANY ASSISTANCE NEEDED.
[2019-09-02 20:45] VITALS: BP 146/71
--- NOTE | 2019-09-03 00:01 | NUR ---
EYES CLOSED, NO FACIAL GRIMACING NOTED. RESPIRATION EVEN AND UNLABORED. NO S/S OF ACUTE DISTRESS. CALL LIGHT WITHIN EASY REACH.BED IN LOWEST POSITION FOR SAFETY.
--- NOTE | 2019-09-03 06:15 | NUR ---
AMBULATED TO B[place]OM FOR PERSONAL NEEDS. KEPT CLEAN AND DRY. DENEIS ANY CHEST PAIN/DISCOMFORT. ALL NEEDS ATTENDED.
[2019-09-03 06:18] VITALS: BP 109/73
--- NOTE | 2019-09-03 07:10 | NUR ---
RECIEVED PT SITTING UP IN BED WITH NO C/O PAIN OR DISTRESS. A/O X4 WITH NO C/O ORTIZ OR PAIN. TELE#15 CONNECTED TO PT, DENIES CP OR PRESSURE. LUNGS CTAB, PT CURRENTLY ON RA WITH SATURATION OF 95%. IV TO RAC/LAC, BOTH CDI AND PATENT. SAFETY PRECAUTION SIN PLACE, CALL LIGHT WITHIN REACH, WILL MONITOR.
--- NOTE | 2019-09-03 10:00 | NUR ---
PT STABLE WITH NO C/O PAIN OR DISTRESS. SAFETY PRECAUTIONS IN PLACE, CALL LIGHT WITHN REACH, WILL MONITOR.
[2019-09-03 13:50] VITALS: BP 119/71
[2019-09-03 14:37] VITALS: BP 119/71
--- NOTE | 2019-09-03 15:43 | NUR ---
PT STABLE TO DISCHARGE PER MD ORDER. ALL CARES [id number] WELL. VS WNL AND NO PAIN OR DISTRESS NOTED. DENIES ANY CP OR PRESSURE. IV REMOVED FROM LAC/RAC WITH CATHETERS INTACT, NO REDNESS OR INFLAMMATION NOTED. ALL DISCHARGE INSTRUCTIONS, EDUCATION, AND PRESRCIPTIONS GIVEN TO PT AND DAUGHTER, BOTH VERBALIZE UNDERSTANDING. ID BANDS REMOVED FROM PT. PT ESCORTED DOWN TO LOBBY BY THEATRE ARTS PROFESSOR AND DAUGHTER. ALL PERSONAL BELONGINGS IN HAND.
== END 2019-09-03 15:28 | disposition home or self-care (01) | DRG 195 ==
LOC: ED 12:02 → DU 14:38
PROVIDERS: ADMIT Internal Medicine
DX: R09.1 Pleurisy (principal); R07.89 Other chest pain; I10 Essential (primary) hypertension; E11.9 Type 2 diabetes mellitus without complications; I25.2 Old myocardial infarction; I25.10 Atherosclerotic heart disease of native coronary artery without angina pectoris; Z68.27 Body mass index [BMI] 27.0-27.9, adult; Z79.01 Long term (current) use of anticoagulants; Z86.711 Personal history of pulmonary embolism; Z79.84 Long term (current) use of oral hypoglycemic drugs
CPT/HCPCS: 82962; 85378; G0378; J2270; Q0092

== ENCOUNTER 2019-09-08 20:21 | Emergency (ER) | payer OTHER ==
[~2019-09-08] VITALS: Ht 162.6 cm; Wt 68.9 kg
[~2019-09-08 20:21] MED LIST changes: +CLARAVIS30 MG PO
[2019-09-08 20:40] VITALS: Ht 162.6 cm; Wt 68.9 kg
[2019-09-09 00:02] VITALS: BP 130/74
== END 2019-09-09 00:02 | disposition home or self-care (01) ==
LOC: ED 20:21
DX: S29.011A Strain of muscle and tendon of front wall of thorax, initial encounter (principal); Z88.0 Allergy status to penicillin; X58.XXXA Exposure to other specified factors, initial encounter; Y93.89 Activity, other specified; Y92.89 Other specified places as the place of occurrence of the external cause; Y99.8 Other external cause status
CPT/HCPCS: 82962; 87804; J1885; Q0092

== ENCOUNTER 2019-10-26 17:53 | Emergency (ER) | payer OTHER ==
[~2019-10-26] VITALS: Ht 162.6 cm; Wt 69.4 kg
[2019-10-26 18:04] VITALS: Ht 162.6 cm; Wt 69.4 kg
[2019-10-26 18:33] LABS: BASOPHIL % 0.4 % (0-2); PLATELET COUNT 210 x10^3mcL (130-400); RED CELL DISTRIBUTION WIDTH 15.5 % (11.5-14.5)
[2019-10-26 18:41] LABS: CALCIUM 8.7 mg/dL (8.5-10.1); CARBON DIOXIDE 27.6 mmol/L (21-32); CHLORIDE SERUM 105 mmol/L (98-107); GLUCOSE SERUM 95 mg/dL (74-106); POTASSIUM SERUM 3.8 mmol/L (3.5-5.1); SODIUM SERUM 139 mmol/L (136-145)
[2019-10-26 18:45] LABS: ALBUMIN 3.6 g/dL (3.4-5.0); ALKALINE PHOSPHATASE 110 U/L (46-116); ALT/SGPT 23 U/L (16-63); AMYLASE 96 U/L (25-115); AST/SGOT 12 U/L (15-37); BILIRUBIN TOTAL 0.2 mg/dL (0.20-1.00); LIPASE 103 IU/L (73-393); TOTAL PROTEIN, SERUM 7.3 g/dL (6.4-8.2)
[2019-10-26 20:47] VITALS: BP 144/80
== END 2019-10-26 20:47 | disposition home or self-care (01) ==
LOC: ED 17:53
PROVIDERS: Emergency Medicine
DX: R10.31 Right lower quadrant pain (principal); I10 Essential (primary) hypertension; E11.9 Type 2 diabetes mellitus without complications; Z88.0 Allergy status to penicillin; Z90.49 Acquired absence of other specified parts of digestive tract
CPT/HCPCS: 36415; J1885

== ENCOUNTER 2019-11-18 13:08 | Emergency (ER) | payer OTHER ==
[~2019-11-18] VITALS: Ht 162.6 cm; Wt 71.2 kg
[2019-11-18 13:39] VITALS: BP 142/58; Ht 162.6 cm; Wt 71.2 kg
== END 2019-11-18 18:01 | disposition home or self-care (01) ==
LOC: ED 13:08
DX: M54.5 Low back pain (principal); G89.29 Other chronic pain; M43.10 Spondylolisthesis, site unspecified; I10 Essential (primary) hypertension; E11.9 Type 2 diabetes mellitus without complications
CPT/HCPCS: 82962; J1100; J1885

== ENCOUNTER 2019-12-13 13:30 | Emergency (ER) | payer OTHER ==
[~2019-12-13] VITALS: Ht 162.6 cm; Wt 68.9 kg
[2019-12-13 13:34] VITALS: BP 136/76; Ht 162.6 cm; Wt 68.9 kg
== END 2019-12-13 15:22 | disposition home or self-care (01) ==
LOC: ED 13:30
DX: M54.16 Radiculopathy, lumbar region (principal); M79.662 Pain in left lower leg; M79.661 Pain in right lower leg; M25.551 Pain in right hip; I10 Essential (primary) hypertension; E11.9 Type 2 diabetes mellitus without complications; M19.90 Unspecified osteoarthritis, unspecified site; Z98.890 Other specified postprocedural states; Z88.0 Allergy status to penicillin
CPT/HCPCS: J3010

== ENCOUNTER 2020-02-04 13:40 | Emergency (ER) | payer OTHER ==
[~2020-02-04] VITALS: Ht 162.6 cm; Wt 69.9 kg
[2020-02-04 14:02] VITALS: Ht 162.6 cm; Wt 69.9 kg
[2020-02-04 14:27] VITALS: BP 177/78
== END 2020-02-04 14:27 | disposition home or self-care (01) ==
LOC: ED 13:40
DX: S60.512A Abrasion of left hand, initial encounter (principal); S60.511A Abrasion of right hand, initial encounter; L03.114 Cellulitis of left upper limb; L03.113 Cellulitis of right upper limb; R21 Rash and other nonspecific skin eruption; I10 Essential (primary) hypertension; E11.9 Type 2 diabetes mellitus without complications; G89.29 Other chronic pain; M19.90 Unspecified osteoarthritis, unspecified site; Z90.89 Acquired absence of other organs; Z88.0 Allergy status to penicillin; X58.XXXA Exposure to other specified factors, initial encounter; Y93.89 Activity, other specified; Y92.89 Other specified places as the place of occurrence of the external cause; Y99.8 Other external cause status

== ENCOUNTER 2020-03-26 13:19 | Emergency (ER) | payer OTHER, SELFPAY ==
[~2020-03-26] VITALS: Ht 154.9 cm; Wt 69.9 kg
[2020-03-26 13:34] VITALS: Ht 154.9 cm; Wt 69.9 kg
[2020-03-26 14:20] VITALS: BP 130/69
== END 2020-03-26 14:20 | disposition home or self-care (01) ==
LOC: ED 13:19
DX: U07.1 COVID-19 (principal); I10 Essential (primary) hypertension; E11.9 Type 2 diabetes mellitus without complications; G89.29 Other chronic pain; M19.90 Unspecified osteoarthritis, unspecified site; Z90.89 Acquired absence of other organs; Z88.0 Allergy status to penicillin
CPT/HCPCS: U0003-CS

== ENCOUNTER 2020-08-25 11:50 | Emergency (ER) | payer OTHER, SELFPAY ==
[~2020-08-25] VITALS: Ht 162.6 cm; Wt 69.9 kg
[2020-08-25 12:05] VITALS: BP 166/94; Ht 162.6 cm; Wt 69.9 kg
== END 2020-08-25 14:35 | disposition home or self-care (01) ==
LOC: ED 11:50
DX: L30.9 Dermatitis, unspecified (principal); I10 Essential (primary) hypertension; E11.9 Type 2 diabetes mellitus without complications; G89.29 Other chronic pain; M54.9 Dorsalgia, unspecified; Z88.0 Allergy status to penicillin; Z90.89 Acquired absence of other organs